=== PATIENT | female | born 1950 | race Caucasian/White ===

== ENCOUNTER 2021-06-25 08:20 | Day surgery (SDC) | payer OTHER ==
[~2021-06-25] VITALS: Ht 149.9 cm; Wt 83.6 kg
[2021-06-25] MEDS ORDERED: SODIUM CHLORIDE 0.9% 1,000 ML IV ONE (08:30)
[2021-06-25] MEDS ORDERED: SODIUM CHLORIDE 0.9% 1,000 ML ONE (09:46)
[2021-06-25] MEDS ORDERED: DiphenhydrAMINE HCL 50 MG CAPSULE ONE (09:47)
[2021-06-25] MEDS ORDERED: DIAZEPAM 5 MG TABLET ONE (09:47)
[2021-06-25] MEDS ORDERED: ASPIRIN 81 MG CHEWABLE TABLET ONE (09:47)
[2021-06-25] MEDS ORDERED: DiphenhydrAMINE HCL 50 MG CAPSULE PO ONE (10:30)
[2021-06-25] MEDS ORDERED: ASPIRIN 81 MG CHEWABLE TABLET PO ONE (10:30)
[2021-06-25] MEDS ORDERED: DIAZEPAM 5 MG TABLET PO ONE (10:30)
[2021-06-25 11:05] LABS: GLUCOMETER DEV NAME(LOC) SDS.; GLUCOSE,POINT OF CARE 161 MG/DL (70-110)
[2021-06-25] MEDS ORDERED: LEVO75 PO ×2 (12:27→12:34)
[2021-06-25] MEDS ORDERED: LOSA-382 PO (12:29)
[2021-06-25] MEDS ORDERED: BUDE180H IH (12:34)
[2021-06-25] MEDS ORDERED: ERTU15TA PO (12:34)
[2021-06-25] MEDS ORDERED: ASPI-1450 PO (12:34)
[2021-06-25] MEDS ORDERED: LIDOCAINE/PF 1% 30 ML VIAL ONE (14:57)
[2021-06-25] MEDS ORDERED: SODIUM BICARBONATE 50 MEQ/50 ML VIAL ONE (14:57)
[2021-06-25] MEDS ORDERED: IOHEXOL 300 MG/ML 150 ML VIAL ONE (14:57)
[2021-06-25 14:58] VITALS: BP 153/88
[2021-06-25] MEDS ORDERED: HEPARIN SODIUM 1000 UNITS/NS 1,000 ML ONE (14:58)
[2021-06-25] MEDS ORDERED: MIDAZOLAM HCL 2 MG/2 ML VIAL ONE ×2 (14:59→15:57)
[2021-06-25] MEDS ORDERED: FentaNYL CITRATE PF 100 MCG/2 ML VIAL ONE ×2 (14:59→15:57)
[2021-06-25] MEDS ORDERED: METF-446 PO (15:07)
[2021-06-25] MEDS ORDERED: MONT-40 PO (15:07)
[2021-06-25] MEDS ORDERED: ALEN70TA80 PO (15:07)
[2021-06-25] MEDS ORDERED: ASPI-1444 PO (15:07)
[2021-06-25] MEDS ORDERED: GLYB5TAB10 PO (15:07)
[2021-06-25] MEDS ORDERED: GABA-1181 PO (15:07)
[2021-06-25] MEDS ORDERED: FentaNYL CITRATE PF 100 MCG/2 ML VIAL IVP ONE ×3 (15:30→15:45)
[2021-06-25] MEDS ORDERED: MIDAZOLAM HCL 2 MG/2 ML VIAL IVP ONE ×3 (15:30→15:45)
[2021-06-25] MEDS ORDERED: LIDOCAINE 1% 30 ML/SOD BICARB 8.4% 4 ML SQ ONE (15:30)
[2021-06-25] MEDS ORDERED: IOHEXOL 300 MG/ML 150 ML VIAL IARTER ONE (15:30)
[2021-06-25] MEDS ORDERED: HEPARIN SODIUM 1000 UNITS/NS 1,000 ML IARTER ONE (15:30)
[2021-06-25] MEDS ORDERED: HEPARIN SODIUM,PORCINE 5,000 UNITS/ML VIAL IVP ONE (15:45)
[2021-06-25] MEDS ORDERED: IOHEXOL 300 MG/ML 50 ML VIAL ONE (15:49)
[2021-06-25] MEDS ORDERED: PROTAMINE SULFATE 10 MG/ML 5 ML VIAL IVP ONE (16:15)
[2021-06-25 16:18] VITALS: BP 143/71
== END 2021-06-25 19:10 | disposition home or self-care (01) ==
LOC: SDS 08:20
PROVIDERS: ATTEND Internal Medicine Interventional Cardiology
DX: E11.51 Type 2 diabetes mellitus with diabetic peripheral angiopathy without gangrene (principal); I70.211 Atherosclerosis of native arteries of extremities with intermittent claudication, right leg; I10 Essential (primary) hypertension; E66.9 Obesity, unspecified; Z68.36 Body mass index [BMI] 36.0-36.9, adult; Z90.710 Acquired absence of both cervix and uterus; Z96.652 Presence of left artificial knee joint; Z98.890 Other specified postprocedural states; Z79.899 Other long term (current) drug therapy; Z79.84 Long term (current) use of oral hypoglycemic drugs; Z88.1 Allergy status to other antibiotic agents; Z83.3 Family history of diabetes mellitus
CPT/HCPCS: 37225; 75625; 75716; 82962; 93005; 99152; 99153; C1714; C1725; C1760; C1887; J1644; J2250; J2720; J3010; J3490 ×2; J7030; Q9967 ×2; 36200; 37229; 75630; 75962; Z7610